=== PATIENT | female | born 1995 | race Caucasian/White ===

== ENCOUNTER 2017-08-21 12:19 | Emergency (ER) | payer OTHER ==
[~2017-08-21] VITALS: Ht 160 cm; Wt 70.8 kg
[2017-08-21 12:38] VITALS: TEMP 37; Ht 160 cm; Wt 70.8 kg
[2017-08-21] MEDS ORDERED: MoRPHine SULFATE 4 MG/ML 1 ML CARP\\VIAL IV STA (12:58)
[2017-08-21] MEDS ORDERED: SODIUM CHLORIDE 0.9% 1000ML 1,000 ML IV STA (12:58)
[2017-08-21] MEDS ORDERED: ONDANSETRON INJ 2 MG/ML 2 ML VIAL IV STA (12:58)
[2017-08-21] MEDS ORDERED: BCPILLS PO (13:07)
[2017-08-21] MEDS ORDERED: OPTIRAY 320 IV PRN (13:15)
[2017-08-21 13:25] LABS: BASO % 0.2 %; BASO ABS # 0.02 K/uL (0-0.2); EOS % 0.6 %; EOS ABS # 0.07 K/uL (0-0.5); HEMATOCRIT 36.9 % (37-47); IG# 0.04 K/uL (0.00-0.02); LYMPH % 17.4 %; LYMPH ABS # 1.93 K/uL (1.2-3.4); MEAN CELL VOLUME 66.7 fL (80-100); MEAN CORPUSCULAR HEMOGLOBIN 21.7 pg (25-34); MEAN CORPUSCULAR HGB CONC 32.5 g/dl (32-36); MEAN PLATELET VOLUME 10.9 fL (7.4-10.4); MONO % 4.2 %; MONO ABS # 0.47 K/uL (0.11-0.59); NEUT % 77.2 %; NEUT ABS # 8.57 K/uL (1.4-6.5); PLATELET COUNT 321 K/uL (130-400); RED CELL DISTRIBUTION WIDTH CV 16.3 % (11.5-14.5); RED CELL DISTRIBUTION WIDTH SD 38.1 fL (36.4-46.3)
[2017-08-21 13:47] LABS: CALCIUM 9.7 mg/dl (8.5-10.1); CREATININE 0.62 mg/dl (0.60-1.20); POTASSIUM 3.5 mmol/L (3.5-5.1)
[2017-08-21 13:49] LABS: TOTAL PROTEIN 8.3 gm/dl (6.4-8.2)
--- NOTE | 2017-08-21 15:07 | DIAGNOSTIC IMAGING REPORT ---
PELVIC ULTRASOUND, TRANSABDOMINAL AND TRANSVAGINAL HISTORY: Pelvic pain. COMPARISON: None. FINDINGS: Uterus: 6.8 x 4.4 x 3.1 cm. The uterus is retroflexed. Endometrial stripe: 3 mm in thickness. Right ovary: Normal in size and demonstrates normal color flow. Left ovary: Normal in size and demonstrates normal color flow. Miscellaneous:Small amount of complex fluid within the pelvis. IMPRESSION: Small amount of complex fluid within the pelvis. The uterus and ovaries are within normal limits. Electronically signed by: Oneil Christian M.D. 08/21/2017 3:05 PM Dictated Date/Time: 08/21/2017 3:04 PM
--- NOTE | 2017-08-21 16:00 | DIAGNOSTIC IMAGING REPORT ---
CT ABD/PELVIS IV AND ORAL CONT CLINICAL HISTORY: Generalized abdominal pain COMPARISON STUDY: Pelvic ultrasound dated 08/21/2017 TECHNIQUE: Following the IV administration of 94 mL of Optiray-320, CT scan of the abdomen and pelvis was performed from the lung bases to the proximal femurs. Images are reviewed in the axial, sagittal, and coronal planes. IV contrast was administered without complication. A dose lowering technique was utilized adhering to the principles of ALARA. CT DOSE: 370.54 mGy.cm FINDINGS: Lower chest: The heart is normal in size and configuration, without pericardial effusion. The lung bases and pleural spaces are clear. Liver: No focal hepatic masses are visualized. There is minimal prominence the central intrahepatic biliary ducts Gallbladder: Unremarkable. Spleen: Normal in size and attenuation. Pancreas: Unremarkable. Adrenal glands: Unremarkable. Kidneys: There is symmetric renal cortical enhancement. The kidneys are normal in size without hydronephrosis. Bowel: There are no transition zones indicate bowel obstruction. There is a retrocecal appendix. The appendix appears normal. There is no evidence of acute diverticulitis. Peritoneum: No free air is visualized. There is trace free fluid in the pelvis likely physiologic. Vasculature: The abdominal aorta is normal in course and caliber. Adenopathy: None. Pelvic viscera: The bladder, and pelvic viscera are unremarkable. Skeletal structures: No destructive osseous lesions are seen. IMPRESSION: 1. No acute intra-abdominal or pelvic findings 2. No evidence of bowel obstruction. No evidence of free air 3. Normal appendix. No evidence of acute diverticulitis. Electronically signed by: Jordan Bello M.D. 08/21/2017 3:59 PM Dictated Date/Time: 08/21/2017 3:55 PM
[2017-08-21 17:28] VITALS: BP 127/81; PULSE 96; O2SAT 100
--- NOTE | 2017-08-22 18:09 | EMERGENCY ROOM VISIT NOTE ---
ED Visit Note First contact with patient: 12:48 Chief Complaint: Abdominal pain. History of Present Illness: Ms. Romero is a 22 year-old white female ambulates into the ED complaining of bilateral lower quadrant abdominal pain. Historically patient reports significant gastrointestinal disorders or surgeries. Patient reports a acute onset of flow or quadrant abdominal pain that started approximately 12 hours ago. He reports she was in her living room watching TV when the pain started. She then went to bed and when she woke this morning the pain was diffusely throughout the lower abdomen. She describes her pain as a pressure-like sensation. She rates her discomfort 6/10. The pain is nonradiating. Her pain worsens minimally with palpation. She has not identified any alleviating factors related to the pain. She reports taking ibuprofen last night without relief of her discomfort. Associated with her pain she reports she's had a decreased appetite. Patient denies fevers, chills, sweats, skin eruptions, skin color changes, upper respiratory tract symptoms, shortness of breath, chest pain, nausea, vomiting, diarrhea, constipation, rectal bleeding, black/tarry stools, urinary symptoms, hematuria, vaginal bleeding, vaginal discharge, sexual activity, back/ flank pain. Review of Systems: As noted above in history of present illness. All body systems were reviewed and found to be negative as noted above. Past Medical History: Left lumbar herniated disc. Current Medications: control. Allergies to Medications: Patient denies. Social History: Patient is currently employed; she feels safe in her home environment; she denies tobacco use and admits to alcohol use. Physical Examination: Vital Signs: Date Time Temp Pulse Resp B/P (MAP) Pulse Ox O2 Delivery O2 Flow Rate FiO2 08/21/17 17:28 96 127/81 100 08/21/17 15:35 84 16 127/65 100 Room Air 08/21/17 14:08 89 15 133/70 100 Room Air 08/21/17 13:35 92 08/21/17 13:27 85 20 124/83 100 Room Air 08/21/17 12:38 37.0 99 18 132/82 98 Room Air GENERAL: 22-year-old female in mild distress due to pain, nontoxic-appearing, afebrile and hemodynamically stable. NEUROLOGICAL: Awake, alert and oriented to person, place and time. Answering questions appropriately and following commands. Normal gait. Good hand eye coordination. SKIN: Warm, dry and pink. No soft tissue eruptions or trauma noted. HEENT: Atraumatic and normocephalic. PERRL. Sclera white and conjunctiva pink. Oral cavity moist and pink. Pharynx is nonerythematous or edematous. Speech normal. No lymphadenopathy. Trachea midline. No jugular venous distention. BACK: No tenderness over the bony spine. No CVA tenderness. THORAX: Lungs sounds are clear to auscultation and equal bilaterally with symmetrical chest wall. No wheezing, rales or rhonchi. No crepitus, tenderness , subcutaneous air or deformities noted. HEART: Regular rate and rhythm. No gallops, rubs or murmurs are appreciated. ABDOMEN: Flat and soft with mild tenderness bilaterally; the pain on the right is just inferior to McBurney's point. Positive bowel sounds in all quadrants. No guarding, rigidity or organomegaly. EXTREMITIES: Moves all extremities well on command and with purpose. All distal neurovascular statuses are intact and equal bilaterally. ED Course: Patient is assessed as noted above. Patient's medication list was reviewed. Laboratory Testing: Test 08/21/17 12:05 08/21/17 12:45 Range/Units White Blood Count 11.10 4.8-10.8 K/uL Red Blood Count 5.53 4.2-5.4 M/uL Hemoglobin 12.0 12.0-16.0 g/dL Hematocrit 36.9 37-47 % Mean Corpuscular Volume 66.7 80-100 fL Mean Corpuscular Hemoglobin 21.7 25-34 pg Mean Corpuscular Hemoglobin Concent 32.5 32-36 g/dl Platelet Count 321 130-400 K/uL Mean Platelet Volume 10.9 7.4-10.4 fL Neutrophils (%) (Auto) 77.2 % Lymphocytes (%) (Auto) 17.4 % Monocytes (%) (Auto) 4.2 % Eosinophils (%) (Auto) 0.6 % Basophils (%) (Auto) 0.2 % Neutrophils # (Auto) 8.57 1.4-6.5 K/uL Lymphocytes # (Auto) 1.93 1.2-3.4 K/uL Monocytes # (Auto) 0.47 0.11-0.59 K/uL Eosinophils # (Auto) 0.07 0-0.5 K/uL Basophils # (Auto) 0.02 0-0.2 K/uL RDW Standard Deviation 38.1 36.4-46.3 fL RDW Coefficient of Variation 16.3 11.5-14.5 % Immature Granulocyte % (Auto) 0.4 % Immature Granulocyte # (Auto) 0.04 0.00-0.02 K/uL Poikilocytosis PRESENT Microcytosis PRESENT Sodium Level 135 136-145 mmol/L Potassium Level 3.5 3.5-5.1 mmol/L Chloride Level 103 98-107 mmol/L Carbon Dioxide Level 22 21-32 mmol/L Anion Gap 10.0 3-11 mmol/L Blood Urea Nitrogen 11 7-18 mg/dl Creatinine 0.62 0.60-1.20 mg/dl Est Creatinine Clear Calc Drug Dose 135.4 ml/min Estimated GFR () 149.4 Estimated GFR (Non- 128.9 BUN/Creatinine Ratio 16.8 10-20 Random Glucose 105 70-99 mg/dl Calcium Level 9.7 8.5-10.1 mg/dl Total Bilirubin 0.5 0.2-1 mg/dl Direct Bilirubin 0.1 0-0.2 mg/dl Aspartate Amino Transf (AST/SGOT) 18 15-37 U/L Alanine Aminotransferase (ALT/SGPT) 21 12-78 U/L Alkaline Phosphatase 61 45-117 U/L Total Protein 8.3 6.4-8.2 gm/dl Albumin 4.0 3.4-5.0 gm/dl Lipase 219 73-393 U/L Urine Test NEG NEG Pelvic Ultrasound: Was reviewed by myself and read by the radiologist showing a small amount of complex fluid in the pelvis. Normal-appearing uterus and ovaries with normal color flow. Contrast Abdominal/Pelvic CT: Was reviewed by myself and read by the radiologist showing no acute intra-abdominal or pelvic findings, no evidence of bowel obstruction or free air, normal-appearing appendix and no evidence of acute diverticulitis. Patient was hydrated with normal saline and she received 4 mg of Zofran IV and 4 mg of morphine IV for her symptoms. Patient was reassessed multiple times during her stay in the emergency department. Patient's case was reviewed with Dr. Armendariz; we agreed on diagnostic approach, treatment, disposition and plan. Patient was educated about today's findings and instructed on her treatment plan ; she verbalized understanding and agreement with this plan. Clinical Impression: Acute by lower abdominal pain. Decision-Making: Initially my differential diagnosis I considered ovarian cyst rupture, ectopic , ovarian torsion, appendicitis, diverticulitis, constipation, PID and other causes. Disposition: Patient discharged home in stable condition; prior to departure she was reassessed and subjectively reported she was feeling much better and rated her discomfort 2/10. Plan: Patient was encouraged to alternate ibuprofen and acetaminophen every 3 hours as needed for persistent pain. Patient is encouraged to stay well-hydrated. Patient was encouraged to follow-up with her [employer] specialist or primary care provider for recheck if no better in 2-4 days. Patient is encouraged return ED for worsening/uncontrolled pain, fevers, bloody stools, bloody urine, uncontrolled vomiting or any new/concerning symptoms.
== END 2017-08-21 17:20 | disposition home or self-care (01) ==
LOC: C.EDB 12:21
DX: R10.31 Right lower quadrant pain (principal); R10.32 Left lower quadrant pain; F10.99 Alcohol use, unspecified with unspecified alcohol-induced disorder; Z79.3 Long term (current) use of hormonal contraceptives